=== PATIENT | female | born 1940 | race African-American/Black ===

== ENCOUNTER → 2016-11-12 | Outpatient (CLI) | payer MEDICARE, BC ==
[2014-05-08 16:27] VITALS: BP 128/79
--- NOTE | 2016-11-12 15:20 | RAD ---
DATE: 11/12/2016. EXAM: DIGITAL SCREEN BILAT W/CAD HISTORY: Routine screening. COMPARISON: 11/13/2015. This study was interpreted with the benefit of Computerized Aided Detection (CAD). FINDINGS: Mild density is noted bilaterally. Intramammary lymph node upper outer right breast is again noted. No new mass or malignant appearing microcalcifications are seen. The axillae are unremarkable. IMPRESSION: No mammographic features suspicious for malignancy are identified. BI-RADS CATEGORY: 2 BENIGN FINDING(S) RECOMMENDED FOLLOW-UP: 12M 12 MONTH FOLLOW-UP PQRS compliance statement: Patient information was entered into a reminder system with a target due date for the next mammogram. Mammography is a sensitive method for finding small breast cancers, but it does not detect them all and is not a substitute for careful clinical examination. A negative mammogram does not negate a clinically suspicious finding and should not result in delay in biopsying a clinically suspicious abnormality. "Our facility is accredited by the [employer] Mammography [employer]."
== END | disposition home or self-care (01) ==
LOC: MAMMO 14:44
PROVIDERS: ATTEND Family Medicine
DX: Z12.31 Encounter for screening mammogram for malignant neoplasm of breast (principal)
CPT/HCPCS: G0202; 77067

== ENCOUNTER → 2017-11-13 | Outpatient (CLI) | payer MEDICARE | END | disposition home or self-care (01) | LOC: MAMMO 08:46 | DX: Z12.31 Encounter for screening mammogram for malignant neoplasm of breast (principal) | CPT/HCPCS: 77067 ==

== ENCOUNTER → 2017-11-27 | Outpatient (CLI) | payer MEDICARE | END | disposition home or self-care (01) | LOC: RAD 08:30 | DX: M17.12 Unilateral primary osteoarthritis, left knee (principal); M81.6 Localized osteoporosis [Lequesne]; M76.892 Other specified enthesopathies of left lower limb, excluding foot | CPT/HCPCS: 73562 ==

== ENCOUNTER → 2018-10-06 | Outpatient (CLI) | payer MEDICARE ==
[2014-05-08 16:27] VITALS: BP 128/79
--- NOTE | 2018-10-06 17:37 | RAD ---
CHEST PA LATERAL History: COUGH X 9 DAYS, DX WITH BRONCHITIS ON 10/01/18. Comparison: None. Heart size: Upper limits size Jamilah/mediastinum: Within normal limits Lungs: Mild hazy opacity left lung base, compatible with atelectasis or possible very mild infiltrate, seen on the frontal view. Pleura: No evidence of pleural effusion. Pneumothorax: None visualized Bones: Regional skeleton appears grossly intact. Miscellaneous: None Impression: No acute radiographic findings. Electronically signed by: Renaldo Lovett MD (10/06/2018 5:34 PM) [facility]
== END | disposition home or self-care (01) ==
LOC: LAB 15:05
PROVIDERS: ATTEND Family Medicine
DX: R05 Cough (principal); J40 Bronchitis, not specified as acute or chronic
CPT/HCPCS: 71046

== ENCOUNTER → 2019-12-20 | Outpatient (CLI) | payer MEDICARE, BC ==
[2014-05-08 16:27] VITALS: BP 128/79
--- NOTE | 2019-12-20 12:34 | KCIC ---
Bilateral digital screening mammograms with 3-D tomosynthesis: Reason for examination: Routine screening. Comparison is made to previous studies dated 12/10/2018 and 11/13/2017. Bilateral mammograms in CC and oblique projections were obtained with 2-D imaging and 3-D tomosynthesis imaging on a Siemens Inspiration unit and reviewed on the workstation. Interpretation was made with the benefit of CAD. The skin and nipples show no abnormalities. No abnormal axillary lymph nodes are seen. The breast parenchyma shows scattered fatty and fibroglandular density. (Breast density: Category B.) There continues to be an intramammary lymph node in the 10:00 position of the right breast posteriorly which is stable. There are no new dominant masses, suspicious calcifications or architectural distortion. Benign calcifications are present. Impression: No evidence of malignancy. Recommend routine screening. BI-RAD Category 2: Benign. "Our facility is accredited by the [employer] Mammography [employer]." This patient's information has been entered into a reminder system for the patient to be notified with the results of her examination and a target date for the next mammogram. Electronically signed by: Ruchi Cartagena MD (12/20/2019 12:31 PM) [id number]
--- NOTE | 2019-12-20 14:05 | KCIC ---
Indication: Postmenopausal screening for osteoporosis. COMPARISON: None available. Bone Density: -BMD: (g/cm2) - AP Spine Total (L1-L4).......... 0.953. - Total left Hip................. 0.859. T-Score: - AP Spine Total (L1-L4)......... -0.8. - Total left Hip................. -0.7. Z-Score: - AP Spine Total (L1-L4).......... 1.1. - Total left Hip................. 0.4. World Health Organization criteria for BMD interpretation classify patients as Normal (T-score at or above -1.0), Osteopenic (T-score between -1.0 and -2.5), or Osteoporotic (T-score at or below -2.5). Impression: 1. AP Spine Total L1-L4--- normal. 2. Total left Hip--- normal. Electronically signed by: Andre House MD (12/20/2019 2:02 PM) [facility] [place]
== END | disposition home or self-care (01) ==
LOC: KCIC DEXA 07:52
PROVIDERS: ATTEND Family Medicine
DX: Z12.31 Encounter for screening mammogram for malignant neoplasm of breast (principal); Z78.0 Asymptomatic menopausal state
CPT/HCPCS: 77063; 77067; 77080

== ENCOUNTER → 2020-12-24 | Outpatient (CLI) | payer MEDICARE, BC ==
[2014-05-08 16:27] VITALS: BP 128/79
--- NOTE | 2020-12-25 15:46 | RAD ---
EXAM: Bilateral digital screening mammogram with tomosynthesis. HISTORY: 80-year-old female presents for screening mammography. TECHNIQUE: Full-field digital craniocaudal and mediolateral oblique 2D and 3D tomosynthesis images of both breasts are obtained for evaluation. Computer aided detection was not applied. COMPARISON: 12/20/2019 and 12/10/2018 BREAST PARENCHYMAL DENSITY: Level A - Mostly fat. FINDINGS: There is no new suspicious mass, microcalcification or region of architectural distortion. There are stable benign calcifications within both breasts, including a cluster of faint calcificatio ns within the posterior inferior left breast. The two-year course of stability favors benignity. Ther e is a stable benign nodule within the lateral right breast. IMPRESSION: BI-RADS Category 2: Benign finding(s). RECOMMENDATION: Annual mammography is recommended. If your mammogram demonstrates that you have dense breast tissue, which could hide abnormalities, and if you have other risk factors for breast cancer that have been identified, you might benefit from s upplemental screening tests that may be suggested by your ordering physician. Dense breast tissue, i n and of itself, is a relatively common condition. This information is not provided to cause undue c oncern, but rather to raise your awareness and to promote discussion with your physician regarding th e presence of other risk factors, in addition to dense breast tissue. A report of your mammography re sults will be sent to you and your physician. You should contact your physician if you have any ques tions or concerns regarding this report. Mammography is a sensitive method for finding small breast cancers, but it does not detect them all a nd is not a substitute for careful clinical examination. A negative mammogram does not negate a clin ically suspicious finding and should not result in delay in biopsying a clinically suspicious abnorma lity. PQRS compliance statement - Patient information was entered into a reminder system with a target due date for the next mammogram. "Our facility is accredited by the [employer] Mammography [employer]." Electronically signed by: Melida Shah MD (12/25/2020 3:43 PM) [id number]
== END ==
LOC: MAMMO 13:49
PROVIDERS: ATTEND Internal Medicine
DX: Z12.31 Encounter for screening mammogram for malignant neoplasm of breast (principal)
CPT/HCPCS: 77063; 77067

== ENCOUNTER → 2021-12-31 | Outpatient (CLI) | payer MEDICARE, BC ==
[2014-05-08 16:27] VITALS: BP 128/79
--- NOTE | 2021-12-31 17:35 | RAD ---
DATE: 12/31/2021 EXAM: MG BILAT SCREEN+ALEN HISTORY: Screening COMPARISON: 12/24/2020, 12/10/2018, 11/13/2017, 11/12/2016 This study was interpreted with the benefit of Computerized Aided Detection (CAD). Breast Density: SCATTERED The breast parenchyma shows scattered fibroglandular densities. Breast pare nchyma level B. FINDINGS: No suspicious mass, suspicious calcification, or architectural distortion. Stable intramammary lymph node in the upper outer right breast. IMPRESSION: No evidence of malignancy. BI-RADS CATEGORY: 1 NEGATIVE RECOMMENDED FOLLOW-UP: 12M 12 MONTH FOLLOW-UP PQRS compliance statement: Patient information was entered into a reminder system with a target due d ate for the next mammogram. Mammography is a sensitive method for finding small breast cancers, but it does not detect them all a nd is not a substitute for careful clinical examination. A negative mammogram does not negate a clin ically suspicious finding and should not result in delay in biopsying a clinically suspicious abnorma lity. "Our facility is accredited by the [employer] Mammography [employer]." Electronically signed by: Jacinta Ravi MD (12/31/2021 5:32 PM) [id number]
== END ==
LOC: MAMMO 12:28
PROVIDERS: ATTEND Internal Medicine
DX: Z12.31 Encounter for screening mammogram for malignant neoplasm of breast (principal)
CPT/HCPCS: 77063; 77067